=== PATIENT | male | born 1970 | race Caucasian/White ===

== ENCOUNTER 2018-10-22 17:03 | Outpatient (CLI) | payer OTHER, SELFPAY ==
--- NOTE | 2018-10-22 10:13 | DI.RAD_ITS ---
SYMPTOM/DIAGNOSIS: INTERNAL DERANGEMENT, S/P FALL ON 10/17/18 RIGHT KNEE: Three views. No priors. No acute fracture or dislocation is seen. Note is made of a moderate suprapatellar joint effusion. IMPRESSION: Joint effusion. No acute fracture or dislocation.
== END 2018-10-22 17:23 ==
PROVIDERS: Visit Provider Nurse Practitioner Family
DX: M23.91 Unspecified internal derangement of right knee (principal); M25.461 Effusion, right knee
CPT/HCPCS: 73562

== ENCOUNTER 2018-10-27 01:57 | Outpatient (CLI) | payer OTHER, SELFPAY ==
--- NOTE | 2018-10-27 08:32 | DI.MRI_ITS ---
SYMPTOM/DIAGNOSIS: RT KNEE EFFUSION, S/P FALL, PAIN MRI RIGHT KNEE: The study was carried out according to the usual protocol. A moderate joint effusion is demonstrated. There is evidence of synovial hypertrophy. There are some globular foci of dark signal in the synovium raising the possibility of pigmented villonodular synovitis. The medial patellar retinaculum is largely thinned with partial tear particularly at its' insertion on the patella. Note is also made of moderate chondromalacia along the lateral patellar facet. There is some underlying subchondral marrow edema here which could be degenerative or post traumatic. There is considerable degenerative change involving he tibial tuberosity which corresponds to the radiographic findings. The extensor mechanism of the knee is intact. The medial meniscus is normal. The lateral meniscus is normal. The medial capsule and supporting structures are unremarkable. The lateral capsule and supporting structures are unremarkable. There is nothing to suggest a tear. The anterior cruciate ligament is unremarkable. There is no evidence of a tear. The posterior cruciate ligament is intact. The musculature as visualized appears intact. There is a very small Cárdenas's cyst. There is moderate subcutaneous edema anteriorly about the knee. SUMMARY: Moderate subcutaneous edema anteriorly about the knee as demonstrated. There is a moderate joint effusion and synovial hypertrophy is identified. There are regions of dark signal in the synovium raising the possibility of pigmented villonodular synovitis. Note is also made of a small Cárdenas's cyst and partial tearing of the medial retinaculum. Moderate chondromalacia is identified along the lateral patellar facet with subchondral marrow edema which could represent degenerative or post traumatic change.
--- NOTE | 2018-10-28 16:05 | DI.VRAD_ITS ---
EXAM: MR Right Lower Extremity Without Contrast, Knee EXAM DATE/TIME: 10/27/2018 8:28 AM CLINICAL HISTORY: 48 years old, male; Pain; Knee; Right; Patient HX: Right knee effusion, fell on 10/19/18 TECHNIQUE: MR of the Right Lower extremity without intravenous contrast. Exam focused on the knee. COMPARISON: CR XR knee RT 3V AP,lat,helio 10/22/2018 10:36 AM FINDINGS: BONES/JOINTS/CARTILAGE: Patellofemoral compartment: There is a moderate knee joint effusion with synovial hypertrophy. Some globular foci of dark signal are present on some of the synovium, raising the possibility of pigmented villonodular synovitis. The medial patellar retinaculum is largely thinned, with partial tearing, particularly at its insertion on the patella. There is moderate chondromalacia along the lateral patellar facet. Some underlying subchondral marrow edema here could be degenerative or posttraumatic. Femorotibial compartments: There is considerable productive change along the tibial tuberosity, corresponding to the radiographic findings. Extensor mechanism: Unremarkable. No evidence of tear. Medial meniscus: Unremarkable. No evidence of tear. Lateral meniscus: Unremarkable. No evidence of tear. Medial capsule/supporting structures: Unremarkable. No evidence of tear. Lateral capsule/supporting structures: Unremarkable. No evidence of tear. Anterior cruciate ligament: Unremarkable. No evidence of tear. Posterior cruciate ligament: Unremarkable. No evidence of tear. Musculature: Unremarkable. Soft tissues: A small Cárdenas's cyst is present. There is moderate subcutaneous edema anteriorly about much of the knee. IMPRESSION: 1. Moderate subcutaneous edema anteriorly about much of the knee. 2. Moderate knee joint effusion with synovial hypertrophy. Some globular dark signal along the synovium raises the possibility of pigmented villonodular synovitis. 3. Small Cárdenas's cyst. 4. Partial tearing of the medial retinaculum. 5. 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 Dictated and Authenticated by: Chente Ham MD. Ordering:GEORGIE Hodge MD
== END 2018-10-27 02:17 ==
PROVIDERS: PCP Family Medicine Adult Medicine; Visit Provider Nurse Practitioner Family
DX: M25.461 Effusion, right knee (principal); R60.0 Localized edema; M71.21 Synovial cyst of popliteal space [Baker], right knee; M22.41 Chondromalacia patellae, right knee
CPT/HCPCS: 73721

== ENCOUNTER 2021-11-28 11:25 | Emergency (ER) | payer OTHER, SELFPAY ==
[2021-11-28] VITALS (15 sets, daily range): BP systolic 129–150; BP diastolic 82–90; PULSE 66–97; RESP 12–20; TEMP 37.1–37.3; O2SAT 94–98
--- NOTE | 2021-11-28 11:15 | RT.EKG_ITS ---
APPROVED REPORT Exam: Resting ECG Reason for Exam: chest pain/covid Patient Location: E HR:81 bpm ECG Measurements Heart Rate 81 AXIS DE 187 P 28 QRSd 109 QRS -32 QT 352 T 3 QTc 409 Conclusion Sinus rhythm...normal P axis, V-rate 60- 99 Left axis deviation...QRS axis (-30,-90)
[2021-11-28 11:57] LABS: Abs Immature Grans 0.03 10^3/uL (0.0-0.06); HCT 45.6 % (40.0-50.0); HGB 15.1 g/dL (13.5-17.5); MCH 30.2 pg (27.0-33.0); MCHC 33.1 % (32.0-36.0); MCV 91.2 fL (80-95); MPV 9.4 fL (8.0-11.0); Nucleated RBC 0 %; Platelet Count 267 10^3/uL (130-400); RDW 12.8 % (11.8-14.1); RDW-SD 42.5 fL; WBC 11.29 10^3/uL (4.4-10.8)
[2021-11-28 12:20] LABS: ALT 45 U/L (16-63); AST 25 U/L (15-37); Albumin 4.1 g/dL (3.4-5.0); Alkaline Phosphatase 69 U/L (46-116); Anion Gap 10.9 mmol/L (3-11); BUN 18 mg/dL (7-18); Bilirubin, Total 0.5 mg/dL (0.2-1.0); CO2 24.1 mmol/L (21.0-32.0); Calcium 8.8 mg/dL (8.5-10.1); Chloride 100 mmol/L (98-107); Glucose 88 mg/dL (74-106); Sodium 135 mmol/L (136-145); Total Protein 8.1 g/dL (6.4-8.2); Troponin I < 50 ng/L (<or=60)
[2021-11-28 12:29] LABS: Absolute Lymphocyte Count 1.92 10^3/uL (1.2-3.4); Absolute Monocyte Count 1.13 10^3/uL (0.1-0.8); Absolute Neutrophil Count 8.24 10^3/uL (1.2-6.7); Atypical Lymphocytes % 8; Bands % 0; Diff Comment Manual Differential; RBC Morphology Normal
[2021-11-28 12:38] LABS: D-Dimer 611 ng/mlFEU (<500)
--- NOTE | 2021-11-28 12:53 | DI.CT_ITS ---
Exam(s) CT CHEST PE CTA EXAM: CT CHEST PE CTA CLINICAL HISTORY: intermit lt chest pain, positive covid, +ddimer. TECHNIQUE: Imaging Protocol: Axial CT angiography was performed with multi-slice acquisition and mu lti-planar and/or 3D reconstructions. CONTRAST MATERIAL: Intravenous: Omnipaque 350 Contrast volume:structured data in ml COMPARISON: No exams were available for comparison FINDINGS: CT angiography of the chest was performed with intravenous infusion of 82 cc of Omnipaque 350. The lungs are clear. No pleural effusion. Tracheobronchial tree appears intact. No evidence of pulmonary embolic disease. Thoracic aorta is of normal diameter, no thoracic aortic an eurysm or dissection, major branch vessels appear intact. No mediastinal or hilar adenopathy. Images obtained through the upper abdomen show unremarkable appearance of the visualized portions of the liver, spleen, pancreas, adrenals, and kidneys. IMPRESSION: Negative CT angiogram of the chest. No evidence of pulmonary embolic disease. RADIATION DOSE DELIVERED: 501.64mGy.cm Total DLP 501.64mGy.cm Total DLP 13.82mGy CTDIvol DATA REPOSITORY: All CT scans at this facility are submitted to the National Radiology Data Registry (NRDR) Dose Index Registry (DIR) with the [employer] ([employer]). RADIATION OPTIMIZATION: All CT scans at this facility use at least one of these dose optimization te chniques: automated exposure control; mA and/or kV adjustment per patient size (includes targeted exa ms where dose is matched to clinical indication); or iterative reconstruction.
[2021-11-28] MEDS: Omnipaque 350 MG/ML 100 ML BTL 82 ML IJ (13:02)
--- NOTE | 2021-11-28 14:00 | RT.EKG_ITS ---
APPROVED REPORT Exam: Resting ECG Reason for Exam: chest pain Patient Location: E HR:78 bpm ECG Measurements Heart Rate 78 AXIS VT 182 P 22 QRSd 108 QRS -31 QT 370 T 3 QTc 423 Conclusion Sinus rhythm...normal P axis, V-rate 60- 99 Left axis deviation...QRS axis (-30,-90)
[2021-11-28 14:51] LABS: Troponin I < 50 ng/L (<or=60)
--- NOTE | 2021-11-28 15:14 | W.ED.GENAD ---
Discharge Plan Disposition Patient Disposition: HOME Condition: Stable Discharge Details Clinical Impression: Chest pain Primary Care Provider: Toni Chase ED Provider: Duy Velasquez Home Meds and New Rx's Prescriptions: Continued ibuprofen 800 mg tablet 800 mg PO TID RF: 0 acetaminophen 500 mg capsule 1,000 mg PO TID RF: 0 Discharge Instructions Instructions: Chest Pain (ED), COVID-19 (Coronavirus Disease 2019) (ED) Additional Instructions: You have tested positive for COVID at home. Please maintain isolation at home for 5 days after day of test. If your symptoms are resolved you may go back into public wearing a mask. Please drink plenty of fluids and allow for plenty of rest. Please contact your primary care physician to arrange follow-up. Please be sure to call your physician today to arrange timely follow-up for your chest discomfort. Outpatient stress testing is recommended. No exertional activities are to be performed until cleared by your doctor. Return to the ER immediately for any worsening or new concerning symptoms. Referrals: Toni Chase [Primary Care Provider] - Discharge Data Discharge Date/Time-TO BE ENTERED AT DEPARTURE: 11/28/21 15:58 Medical Decision Making 51-year-old male here with mild respiratory symptoms, tested positive for COVID at home today, also with intermittent brief chest discomfort today. Tender pulmonary embolism. D-dimer was slightly elevated. CT of the chest was obtained and interpreted by radiology- IMPRESSION: Negative CT angiogram of the chest. No evidence of pulmonary embolic disease. Considered ACS. EKG was reviewed and interpreted by me: Please see report, nondiagnostic, no STEMI. Initial troponin negative. Patient was observed in the emergency department for 3 hours and had a repeat delta troponin which was also negative and unchanged from prior. Repeat EKG was reviewed and interpreted by me: Please see report, nondiagnostic, no STEMI, no dynamic changes. Patient reassessed and remained stable. Suspect musculoskeletal etiology. I will have the patient follow-up with his primary care physician. Usual customary discharge instructions were reviewed with the patient. Lab Data Lab results reviewed: Yes I reviewed the patient's lab results. HPI General Mode of arrival: ambulatory. Date/Time Provider Initiated Documentation: 11/28/21 11:34. Limitations to Documentation: no limitations. Information obtained by: patient. HPI Narrative: 51yo m presents with chief complaint of chest discomfort. Patient notes he had fever that started yesterday, nonproductive cough, stuffy head, headache yesterday. He took COVID test this morning and was positive. He notes he has been having intermittent brief episodes of left-sided chest discomfort described as burning. Discomfort occurs every hour or so and last seconds and resolves. No modifiers. Patient denies associated leg swelling or calf pain. No associated diaphoresis or nausea. Related Data Home Medications Medication Instructions Recorded Confirmed acetaminophen 500 mg capsule 1,000 mg PO TID cap 10/29/18 11/28/21 ibuprofen 800 mg tablet 800 mg PO TID 10/29/18 11/28/21 Allergies Allergy/AdvReac Type Severity Reaction Status Date / Time No Known Drug Allergies Allergy Verified 11/28/21 11:31 General Stated Complaint: Chest Pain MADDY: 2 Review of Systems All systems reviewed & are unremarkable except as noted in HPI and below Constitutional Constitutional: Reports as per HPI and Reports fever(s) Cardiovascular Cardiovascular: Reports as per HPI Respiratory Respiratory: Reports as per HPI PFSH All Active Problems Chest pain (Acute) Medical History Carpal tunnel syndrome, bilateral Degenerative disc disease, lumbar Fracture tibia/fibula sports injury, high school Social History Smoking/Tobacco Use Status: Never Smoking risk assessment performed?: Yes Alcohol Intake: current Alcohol Intake frequency: 0-2 drinks per day Alcohol type: hard liquor Drug use: Never Substance use type: does not use Household members: spouse 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, 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[employer] What type of physical activity do you participate in: regular exercise Frequency: daily Do you feel safe at home: Yes Do you feel safe in your relationship?: Yes Exam Const General: cooperative and no acute distress HENMT Mouth: moist mucous membranes Eyes Conjunctivae: normal conjunctivae Sclera: normal sclerae Resp Auscultation: clear to auscultation bilaterally, no rales, no rhonchi and no wheezes Cardio Rate: regular rate and not tachycardic Rhythm: regular rhythm Heart Sounds: no click, no gallops, no murmurs and no rubs GI Palpation: soft, not firm, no guarding, no masses, not rigid and nontender Skin General skin exam: no rashes or lesions noted Neuro General: patient alert, patient awake, patient oriented x3 and tone normal Extrem General: no calf tenderness and no edema Psych Appearance: grossly normal Mental Status: mental status grossly normal Speech and Movement: speech and movement normal Course Vital Signs Vital signs: Vital Signs Temperature 37.3 C 11/28/21 11:27 Pulse 85 11/28/21 11:27 Respiratory Rate 17 11/28/21 11:27 Blood Pressure 150/89 H 11/28/21 11:27 Pulse Oximetry 97 11/28/21 11:27 Temperature 37.1 C 11/28/21 12:22 Temperature Source Temporal Artery Scan 11/28/21 12:22 Pulse 84 11/28/21 14:45 Pulse 92 H 11/28/21 14:45 Respiratory Rate 18 11/28/21 14:45 Respiratory Effort Non-Labored 11/28/21 11:33 Respiratory Depth Normal 11/28/21 11:33 Respiratory Pattern Normal 11/28/21 11:33 Blood Pressure 133/89 11/28/21 14:45 Blood Pressure Mean 100 11/28/21 14:45 Blood Pressure Position Sitting 11/28/21 11:27 Pulse Oximetry 95 11/28/21 14:45 Pain Level 1 11/28/21 11:33 Lab/Test Results Lab/Test Results: Laboratory Tests Range/Units 11/28/21 11/28/21 11/28/21 11:45 11:45 11:45 WBC (4.4-10.8) 10^3/uL 11.29 H RBC (4.36-5.78) 10^6/uL 5.00 Hgb (13.5-17.5) g/dL 15.1 Hct (40.0-50.0) % 45.6 MCV (80-95) fL 91.2 MCH (27.0-33.0) pg 30.2 MCHC (32.0-36.0) % 33.1 RDW (11.8-14.1) % 12.8 Plt Count (130-400) 10^3/uL 267 MPV (8.0-11.0) fL 9.4 Immature Gran % 0.0 Neutrophils % 73.0 Band Neutrophils % 0 Lymphocytes % 9.0 Atypical Lymphs % 8 Monocytes % 10.0 Eosinophils % 0.0 Basophils % 0.0 Nucleated RBC % % 0 Absolute Neutrophils (1.2-6.7) 10^3/uL 8.24 H Absolute Lymphocytes (1.2-3.4) 10^3/uL 1.92 Absolute Monocytes (0.1-0.8) 10^3/uL 1.13 H Absolute Eosinophils (0.0-0.7) 10^3/uL 0.00 Absolute Basophils (0.0-0.2) 10^3/uL 0.00 RBC Morphology Normal D-Dimer (<500) ng/mlFEU 611 H Sodium (136-145) mmol/L 135 L Potassium (3.5-5.1) mmol/L 4.0 Chloride (98-107) mmol/L 100 Carbon Dioxide (21.0-32.0) mmol/L 24.1 Anion Gap (3-11) mmol/L 10.9 BUN (7-18) mg/dL 18 Creatinine (0.70-1.30) mg/dL 1.0 Estimated GFR/1.73 m2 (mL/min/1.73m2) >= 60.00 Glucose (74-106) mg/dL 88 Calcium (8.5-10.1) mg/dL 8.8 Total Bilirubin (0.2-1.0) mg/dL 0.5 AST (15-37) U/L 25 ALT (16-63) U/L 45 Alkaline Phosphatase (46-116) U/L 69 Troponin I (<or=60) ng/L < 50 Total Protein (6.4-8.2) g/dL 8.1 Albumin (3.4-5.0) g/dL 4.1 Range/Units 11/28/21 14:16 WBC (4.4-10.8) 10^3/uL RBC (4.36-5.78) 10^6/uL Hgb (13.5-17.5) g/dL Hct (40.0-50.0) % MCV (80-95) fL MCH (27.0-33.0) pg MCHC (32.0-36.0) % RDW (11.8-14.1) % Plt Count (130-400) 10^3/uL MPV (8.0-11.0) fL Immature Gran % Neutrophils % Band Neutrophils % Lymphocytes % Atypical Lymphs % Monocytes % Eosinophils % Basophils % Nucleated RBC % % Absolute Neutrophils (1.2-6.7) 10^3/uL Absolute Lymphocytes (1.2-3.4) 10^3/uL Absolute Monocytes (0.1-0.8) 10^3/uL Absolute Eosinophils (0.0-0.7) 10^3/uL Absolute Basophils (0.0-0.2) 10^3/uL RBC Morphology D-Dimer (<500) ng/mlFEU Sodium (136-145) mmol/L Potassium (3.5-5.1) mmol/L Chloride (98-107) mmol/L Carbon Dioxide (21.0-32.0) mmol/L Anion Gap (3-11) mmol/L BUN (7-18) mg/dL Creatinine (0.70-1.30) mg/dL Estimated GFR/1.73 m2 (mL/min/1.73m2) Glucose (74-106) mg/dL Calcium (8.5-10.1) mg/dL Total Bilirubin (0.2-1.0) mg/dL AST (15-37) U/L ALT (16-63) U/L Alkaline Phosphatase (46-116) U/L Troponin I (<or=60) ng/L < 50 Total Protein (6.4-8.2) g/dL Albumin (3.4-5.0) g/dL PAWSS Have you Been Recently Intoxicated or Drunk Within the Last 30 days?: No Have you Ever Experienced Previous Episodes of Alcohol Withdrawal?: No Have you ever Experienced Withdrawal Seizures?: No Have you ever Experienced Delirium Tremens(DT)s?: No Have you ever undergone Alcohol Rehabilitation Treatment (i.e, inpt ot outpatient treatment programs)?: No Have you ever Experienced Blackouts?: No Have you ever Combined Alcohol with other Downers within the last 90 days?: No Have you ever Combined Alcohol with any other Substance of Abuse during the last 90 days?: No Positive Blood Alcohol level on Presentation? [PCS.BAL]: No Evidence of Increased Autonomic Activity (i.e. HR>120, tremor, sweating, agitation, nausea)?: No Result: 0
[2021-11-29 12:49] LABS: COVID-19 RT-PCR UVMMC Result Positive (Negative)
--- NOTE | 2021-11-29 13:08 | W.ED.FU ---
I contacted the patient at approximately 1300 on 11-29-2021 to make him aware that his COVID test here in the ER was positive. This came as no surprise because he had tested positive at home yesterday. We discussed the standard CDC recommendations for quarantining. We discussed the importance of treating his symptoms with [id number] medications, resting, adequate hydration. He was encouraged to contact his primary care provider to discuss his ER visit, ongoing symptoms and need for outpatient reevaluation. Standard return precautions were provided
== END 2021-11-28 15:58 | disposition home or self-care (01) ==
PROVIDERS: Emergency Provider Student in an Organized Health Care Education/Training Program; PCP Family Medicine Adult Medicine
DX: U07.1 COVID-19 (principal); R07.9 Chest pain, unspecified; R79.1 Abnormal coagulation profile
CPT/HCPCS: 36415; 71275; 80053; 93005; 99284; 99285; U0003; 84484; 85025; 85379; 93010; J3490

== ENCOUNTER 2022-09-17 19:37 | Emergency (ER) | payer OTHER, SELFPAY ==
[2022-09-17 19:56] VITALS: BP 140/94; PULSE 99; RESP 20; O2SAT 94
--- NOTE | 2022-09-17 20:00 | DI.RAD_ITS ---
Exam(s) XR HAND LT COMPLETE EXAM: XR HAND LT COMPLETE CLINICAL HISTORY: pain s/p hitting it with handle of hammer. TECHNIQUE: 2D digital imaging was performed of the left hand. Three views were obtained. AP, later al and oblique views were obtained. COMPARISON: No exams were available for comparison FINDINGS: BONES: There is a fracture of the terminal tuft of the left 5th finger. No bony destructive lesion i s seen. JOINTS: No dislocation present. SOFT TISSUE: No radiopaque foreign bodies are seen in the soft tissues. IMPRESSION: Mildly comminuted fracture involving the terminal tuft of the 5th finger. DATA REPOSITORY: RADIATION DOSE DELIVERED:
--- NOTE | 2022-09-17 20:15 | ED.GENADUL_ITS ---
Discharge Plan Disposition Patient Disposition: HOME Condition: Stable Discharge Details Clinical Impression: Injury of hand, left Primary Care Provider: Toni Chase ED Provider: Chente Montero Home Meds and New Rx's Prescriptions: New amoxicillin-pot clavulanate 875-125 mg tablet 1 tab PO BID Qty: 10 0RF Continued ibuprofen 800 mg tablet 800 mg PO TID acetaminophen 500 mg capsule 1,000 mg PO TID Discharge Instructions Instructions: Skin Adhesive Care (ED) Additional Instructions: try to keep the fingers covered and with a pressure dressing for the next 5-7 days if you have spreading redness, severe worsening pain or yellow/white discharge return to the emergency department Medical Decision Making 51 yo male comes in with left hand injury. He was at work using a sledehammer when the handle hit his left hand injuring the pinky and ring finger, denies falls or other injuries. He wrapped his fingers and thouht it was sufficient but removed the bandages tonight and noted bleeding in the pinky he couldn't control so he came here. He arrives stable in no distress. His left pinky nail is completely gone and there is a 1cm superficial abrasion that is bleeding in the nail bed. The nailfold is also swollen and tender, there is also distal bony tenderness, intact sensation and can fully range the finger. He has a superficial left distal ring finger nail laceration with the proximal nail still in place, no bleeding and normal sensation pulses and full rom. Does have distal bony tenderness as well. No visible vone exposure. Will obtain xrays to evaluate for underlying fractures, no findings to suggest neurovascular injury able to stop the bleeding with skin adhesive, unfortunately his nail fold is so swollen that I am unable to insert temporary holding device such as sterile foil, he was advised of this and will f/u with hand surgery if he chooses. He does have a distal left 5th fracture of indeterminate age. Discussed with him and he wants to defer ortho referral at this time, was advised to call them if he does choose to have f/u with them. Return precautions given, will provide short course of oral antibiotics as well. He states last tetanus shot was 3 years ago Differential Diagnosis Differential Diagnosis: nail bed injury, avulsion, laceration Imaging Data Radiologic Study: Attestation: I personally reviewed and interpreted this imaging study as follows: Imaging: X-Ray Radiologist's impression: fracture indeterminate age distal left phalanx HPI General Mode of arrival: ambulatory . Date/Time Provider Initiated Documentation: 09/17/22 20:01 . Limitations to Documentation: no limitations . Information obtained by: patient . History of Present Illness 51 year old M presents to the emergency department with the chief complaint of left hand injury, described as moderate, Quality is described as aching, and is localized to the left and upper extremity. Patient reports no radiation. Patient started experiencing this hour(s) (12) and it has been constant. No relieving factors improve symptom(s), No exacerbating factors reported . Patient notes no other symptoms.. Patient did receive the following treatments prior to arrival, none Related Data Home Medications Medication Instructions Recorded Confirmed acetaminophen 500 mg capsule 1,000 mg PO TID 10/29/18 11/28/21 ibuprofen 800 mg tablet 800 mg PO TID 10/29/18 11/28/21 amoxicillin 875 mg-potassium 1 tab PO BID #10 tabs 09/17/22 clavulanate 125 mg tablet Previous Rx's Medication Instructions Recorded amoxicillin 875 mg-potassium 1 tab PO BID #10 tabs 09/17/22 clavulanate 125 mg tablet Allergies Allergy/AdvReac Type Severity Reaction Status Date / Time No Known Drug Allergies Allergy Verified 11/28/21 11:31 General Stated Complaint: Laceration MADDY: 3 Review of Systems All systems reviewed & are unremarkable except as noted in HPI and below Constitutional Constitutional: Denies chills, Denies fever(s) and Denies weakness Cardiovascular Cardiovascular: Denies chest pain and Denies dyspnea Respiratory Respiratory: Denies cough and Denies dyspnea Gastrointestinal Gastrointestinal: Denies abdominal pain, Denies nausea and Denies vomiting Musculoskeletal Musculoskeletal: Denies joint swelling Neurologic Neurologic: Denies weakness Psychiatric Psychiatric: Denies depression Endocrine Endocrine: Denies cold intolerance and Denies heat intolerance Allergic/Immunologic Allergic/Immunologic: Denies urticaria PFSH All Active Problems (Updated 09/17/22 @ 21:12 by Chente Montero MD) Injury of hand, left (Acute) Medical History Carpal tunnel syndrome, bilateral Degenerative disc disease, lumbar Fracture tibia/fibula sports injury, high school Social History Smoking/Tobacco Use Status: Never Smoking risk assessment performed?: Yes Alcohol Intake: current Alcohol Intake frequency: 0-2 drinks per day Alcohol type: hard liquor Drug use: Never Substance use type: does not use Household members: spouse 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, [employer] What type of physical activity do you participate in: regular exercise Frequency: daily Do you feel safe at home: Yes Do you feel safe in your relationship?: Yes Exam Const General: no acute distress Orientation: alert HENMT Head: normal to inspection Ears: external ears normal General nose exam: external nose normal Mouth: moist mucous membranes Eyes General: appearance normal, both eyes and all related structures Neck Neck: normal visual inspection Resp Effort & Inspection: normal respiratory effort and able to speak in complete sentences Cardio Rate: regular rate Skin General skin exam: no rashes or lesions noted Neuro General: patient alert and patient oriented x3 Extrem General: full ROM and capillary refill normal Psych Mental Status: mental status grossly normal Course Vital Signs Vital signs: Vital Signs Pulse 99 H 09/17/22 19:56 Respiratory Rate 20 09/17/22 19:56 Blood Pressure 140/94 H 09/17/22 19:56 Pulse Oximetry 94 09/17/22 19:56 Pulse 99 H 09/17/22 19:56 Respiratory Rate 20 09/17/22 19:56 Blood Pressure 140/94 H 09/17/22 19:56 Blood Pressure Position Sitting 09/17/22 19:56 Pulse Oximetry 94 09/17/22 19:56 Oxygen Delivery Method Room Air 09/17/22 19:56 Oxygen Flow Rate 0 09/17/22 19:56 Pain Level 5 09/17/22 19:56
[2022-09-17] MEDS: Acetaminophen 500 MG TAB 1000 MG PO (20:46)
--- NOTE | 2022-09-17 21:06 | DI.VRAD_ITS ---
PROCEDURE INFORMATION: Exam: XR Left Hand Exam date and time: 09/17/2022 8:43 PM Age: 51 years old Clinical indication: Injury or trauma; Other: Hit with hammer; Blunt trauma (contusions or hematomas); Left; Injury date: 09/17/22; Injury details: Pain S/P hitting it with handle of hammer TECHNIQUE: Imaging protocol: Radiologic exam of the Left hand. Views: 3 or more views. COMPARISON: No relevant prior studies available. FINDINGS: Bones/joints: A mildly comminuted fracture of the distal 5th phalanx of indeterminate age No dislocation Soft tissues: No significant swelling IMPRESSION: Fracture of the distal 5th phalanx of indeterminate age Dictated and Authenticated by: Radhames Acuna MD. Ordering:ISMA Eldridge MD
== END 2022-09-17 21:45 | disposition home or self-care (01) ==
PROVIDERS: Emergency Provider Emergency Medicine; PCP Family Medicine Adult Medicine
DX: S67.197A Crushing injury of left little finger, initial encounter (principal); S67.195A Crushing injury of left ring finger, initial encounter; W27.8XXA Contact with other nonpowered hand tool, initial encounter
CPT/HCPCS: 99283; 73130

== ENCOUNTER 2023-04-07 17:07 | Emergency (ER) | payer OTHER, SELFPAY ==
[2023-04-07 17:11] VITALS: PULSE 102; RESP 18; TEMP 37; O2SAT 95
[2023-04-07 17:14] VITALS: BP 124/84
--- NOTE | 2023-04-07 17:24 | ED.GENADUL_ITS ---
Discharge Plan Disposition Patient Disposition: Home Discharge Details Clinical Impression: Left-sided Gaspar's palsy Primary Care Provider: Toni Chase ED Provider: Jair Carey Home Meds and New Rx's Prescriptions: New prednisone 20 mg tablet 60 mg PO DAILY 7 Days Qty: 21 0RF Artificial Tears (cmc) 1 % drops 1 drp ophthalmic (eye) 4-6XD PRNQty: 15 0RF Refresh Lacri-Lube 56.8-42.5 % ointment 1 applic ophthalmic (eye) QHS Qty: 7 0RF acyclovir 400 mg tablet 400 mg PO QID 7 Days Qty: 28 0RF doxycycline hyclate 100 mg capsule 100 mg PO BID 14 Days Qty: 28 0RF Discontinued ibuprofen 800 mg tablet 800 mg PO TID Patient Comments: not taking acetaminophen 500 mg capsule 1,000 mg PO TID Patient Comments: not taking amoxicillin-pot clavulanate 875-125 mg tablet 1 tab PO BID Qty: 10 0RF Patient Comments: not taking Discharge Instructions Additional Instructions: You were seen in the emergency department for your facial droop and diagnosed with Gaspar's palsy. The section gang worker at [facility] has been asked to see you in the next 1 to 2 days. At home please ensure that your left cornea is protected. You are receiving a prescription for artificial tears that you should take every hour while awake. Please also use this ophthalmologic ointment at night. Please also tape your eye shut at night. You are also receiving steroids and they should take for the next week, antiviral medications and antibiotics to cover in the event that a Lyme infection caused your facial paralysis. As we discussed, if you develop any weakness difficulty speaking or develop any fevers please return to the emergency department. Discharge Data Discharge Date/Time-TO BE ENTERED AT DEPARTURE: 04/07/23 18:39 Medical Decision Making This is an overall very well-appearing normothermic and initially tachycardic 51-year-old male with left-sided facial palsy with no forehead sparing most consistent with Gaspar's palsy. Patient is moving his extremities well with no aphasia nor dysarthria so my suspicion is exceedingly low for CVA so I do not feel the patient is a candidate for tPA. Given my low suspicion for CVA I did not complete a CT scan nor did I feel the patient required hospitalization nor an MRI. No nuchal rigidity nor fevers to suggest meningitis so I did not feel that the patient required a lumbar puncture. Given no shortness of breath nor any chest pain I was not suspicious for Lyme carditis so I did not order an ECG. No tonic-clonic activity to suggest seizure so I did not feel that the patient required an EEG. I have asked health community relations police lieutenant Mel to have the patient seen in the next 1 to 2 days by [facility] for an ophthalmic exam to monitor his left cornea. I also prescribed him artificial tears every hour while awake and ophthalmological ointment at night with Lacri-Lube. I advised him of taping his eye shut at night. We will also initiate treatment with prednisone 60 mg for 1 week given symptom onset within 72 hours. We will also treat with antivirals using acyclovir given reported reassuring labs recently at PCP appointment. Given the patient has been camping today and lives in an area endemic for Lyme will also add on 2 weeks of empiric doxycycline. I did spiritual counselor the patient on avoiding sun exposure and covering up while taking doxycycline. I also advised the patient and his that if he developed any weakness shortness of breath difficulty speaking or if he has any other concerns that he should return to the emergency department. We will proceed with empiric trial of expectant outpatient management and give patient return indications. I have also asked patient to return to the emergency department if he develops any focal weakness any trouble speaking or takes any falls. 6:15 PM Tachycardia resolved without intervention in the ED. HPI General Date/Time Provider Initiated Documentation: 04/07/23 17:23 . HPI Narrative: This is a previously healthy 52-year-old male arriving via private vehicle in the setting of tongue numbness and left-sided facial weakness. Patient reports that he woke up with his tongue numbness at 8 AM. At approximately 10 AM this morning he noticed that his face was drooping on the left side. He attempted treatment at home with diphenhydramine and subsequently took a nap but his symptoms did not improve. He denies routine tobacco. He has no history of hype rtension hyperlipidemia nor diabetes. He does not recall being bit by a tick. He was camping last night. 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 He has had no fevers chest pain or shortness of breath. No dysuria nor frequency. No abdominal pain. He denies any focal areas of weakness. He has not taken any falls. He is not having any trouble speaking nor any trouble naming. Related Data Home Medications Medication Instructions Recorded Confirmed acyclovir 400 mg tablet 400 mg PO QID 1 week #28 tabs 04/07/23 carboxymethylcellulose sodium 1 % 1 drp ophthalmic (eye) 4-6XD PRN 04/07/23 eye drops (Artificial Tears #15 mL (carboxymethylcellulose)) doxycycline hyclate 100 mg capsule 100 mg PO BID 2 weeks #28 caps 04/07/23 prednisone 20 mg tablet 60 mg PO DAILY 1 week #21 tabs 04/07/23 white petrolatum-mineral oil 56.8 1 applic ophthalmic (eye) QHS #7 04/07/23 %-42.5 % eye ointment (Refresh grams Lacri-Lube) Previous Rx's Medication Instructions Recorded acyclovir 400 mg tablet 400 mg PO QID 1 week #28 tabs 04/07/23 carboxymethylcellulose sodium 1 % 1 drp ophthalmic (eye) 4-6XD PRN 04/07/23 eye drops (Artificial Tears #15 mL (carboxymethylcellulose)) doxycycline hyclate 100 mg capsule 100 mg PO BID 2 weeks #28 caps 04/07/23 prednisone 20 mg tablet 60 mg PO DAILY 1 week #21 tabs 04/07/23 white petrolatum-mineral oil 56.8 1 applic ophthalmic (eye) QHS #7 04/07/23 %-42.5 % eye ointment (Refresh grams Lacri-Lube) Allergies Allergy/AdvReac Type Severity Reaction Status Date / Time No Known Drug Allergies Allergy Verified 04/07/23 17:14 General Stated Complaint: FacialProb MADDY: 3 PFSH All Active Problems (Updated 04/07/23 @ 17:51 by Jair Carey MD) Left-sided Gaspar's palsy (Acute) Medical History Carpal tunnel syndrome, bilateral Degenerative disc disease, lumbar Fracture tibia/fibula sports injury, high school Social History Smoking/Tobacco Use Status: Never Smoking risk assessment performed?: Yes Alcohol Intake: current Alcohol Intake frequency: 0-2 drinks per day Alcohol type: hard liquor Drug use: Never Substance use type: does not use Household members: spouse 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 Head: Normocephalic, atraumatic. Eye: Pupils equal, round reactive to light. Extraocular eye movements intact. No conjunctival injection. No scleral icterus. Ear, nose, mouth, throat: Normal voice, handling secretions normally. Neck: Trachea midline. Cardiovascular: Well-perfused distal extremities. Respiratory: Nonlabored respiration. Gastrointestinal: Nondistended abdomen. Musculoskeletal: No edema. Moving all 4 extremities spontaneously. Skin: Normal for age and race, grossly normal temperature and turgor. No acute rash. Neurologic: Alert and appropriate. Left-sided facial palsy that does not spare the forehead. Otherwise cranial nerves II to XII intact grossly. 5 and 5 bilateral upper and lower extremity strength. Psychiatric: Mood and manner are appropriate. Grooming and personal hygiene are appropriate. Course Vital Signs Vital signs: Vital Signs Temperature 37.0 C 04/07/23 17:11 Pulse 102 H 04/07/23 17:11 Respiratory Rate 18 04/07/23 17:11 Pulse Oximetry 95 04/07/23 17:11 Temperature 37.0 C 04/07/23 17:11 Pulse 102 H 04/07/23 17:11 Respiratory Rate 18 04/07/23 17:11 Respiratory Effort Normal, Non-Labored 04/07/23 17:13 Blood Pressure 124/84 04/07/23 17:14 Pulse Oximetry 95 04/07/23 17:11 Oxygen Delivery Method Room Air 04/07/23 17:11 Oxygen Flow Rate 0 04/07/23 17:11
[2023-04-07] MEDS: Doxycycline Hyclate 100 MG CAP PO (17:54)
[2023-04-07] MEDS: Acyclovir 400 MG TAB PO (17:54)
[2023-04-07] MEDS: predniSONE 20 MG TAB 60 MG PO (17:54)
[2023-04-07 17:58] VITALS: PULSE 88
[2023-04-07 18:27] VITALS: BP 127/84; PULSE 86; RESP 16; O2SAT 96
--- NOTE | 2023-04-07 18:36 | NUR.NOTE ---
Nursing Note: Referral faxed to [facility] for bells palsy to be seen this Fri or of this week
== END 2023-04-07 18:39 | disposition home or self-care (01) ==
PROVIDERS: Emergency Provider Emergency Medicine; PCP Family Medicine Adult Medicine
DX: G51.0 Bell's palsy (principal)
CPT/HCPCS: 99283; 99284; J7512

== ENCOUNTER 2024-02-01 18:52 | Emergency (ER) | payer OTHER, SELFPAY ==
[2024-02-01 18:54] VITALS: BP 155/85; PULSE 76; RESP 18; TEMP 36.6; O2SAT 98
--- NOTE | 2024-02-01 19:00 | DI.RAD_ITS ---
Exam(s) XR KNEE RT 3V AP,LAT,MICHELLE EXAM: XR KNEE RT 3V AP,LAT,MICHELLE CLINICAL HISTORY: Right Knee pain. TECHNIQUE: 2D digital imaging was performed. Three views. COMPARISON: CR XR knee RT 3V AP,lat,michelle from 10/22/2018 FINDINGS: BONES: No acute fracture is present. No bony destructive lesion is seen. Old defect at tibial tuber alina. Enthesophyte at upper pole of the patella. JOINTS: Joint spaces are maintained. The knee is normally aligned. A large joint effusion is seen. SOFT TISSUE: Marked suprapatellar soft tissue swelling. Quadriceps tendon injury be considered. IMPRESSION: Anterior soft tissue swelling and large joint effusion. Consider quadriceps tendon tear. DATA REPOSITORY: RADIATION DOSE DELIVERED:
--- NOTE | 2024-02-01 19:05 | W.ED.GENAD ---
Discharge Plan Disposition Patient Disposition: Home Discharge Details Clinical Impression: Effusion of right knee Primary Care Provider: Toni Chase ED Provider: Jair Carey Home Meds and New Rx's Prescriptions: No Action acetaminophen 500 mg capsule 1,000 mg PO Q6H PRN ibuprofen [IBU] 800 mg tablet 800 mg PO Q8H PRN Patient Comments: per patient oxycodone 5 mg tablet 5 mg PO DIRECTED Discharge Instructions Additional Instructions: You are seen in the emergency department for your knee pain. Your x-ray showed no sign of any fractures. There is concern for the possibility of a quadricep tendon rupture for which you should be seen later this week by the orthopedic team. Please use this knee immobilizer. Please wrap and elevate your right knee. You may bear weight on your right knee as you are able to tolerate. For your pain please take medications as follows: 1. Take acetaminophen (Tylenol), 1,000 mg (two 500 mg tabs) every 6 hours [2. Take ibuprofen (Advil), 400 mg every 6 hours.] You are also receiving several stronger pain medicines which you should take as directed. Please do not drive or drink alcohol if you are taking these medications. Referrals: Manohar Mcmahon MD [ [facility] STAFF PHYSICIAN] - Discharge Data Discharge Date/Time-TO BE ENTERED AT DEPARTURE: 02/01/24 21:34 HPI General Date/Time Provider Initiated Documentation: 02/01/24 19:04. HPI Narrative: MDM This is an uncomfortable appearing normothermic and not tachycardic 53-year-old male with right knee pain and traumatic effusion concerning for ligamentous versus osseous abnormality. Will obtain plain films to assess for any osseous abnormalities. No pain or proportion to suggest necrotizing soft tissue infection. I considered knee dislocation however the patient has a well-perfused right lower extremity and is not markedly obese so I do not feel that he requires a CTA runoff. Furthermore he does not have multi-directional instability nor a peroneal nerve palsy. Finally his knee did not hyperextend when his leg was lifted off the stretcher. On ultrasound there was concern for the possibility of quadriceps tendon injury. Soft compartments reassuring against compartment syndrome. No erythema to suggest cellulitis. No fluctuance to suggest abscess. No calf pain to suggest Achilles tendon injury so I did not perform a Eubanks test. No hip pain so low suspicion for hip fx. Will have patient ice and elevate. His inability to straight leg raise certainly could be from his traumatic knee effusion. He is not on blood thinners to suggest ongoing risk for worsening effusion. I have asked patient's nurse Corina to apply ice to his knee. 8:04 PM Unfortunately orthopedics is not on-call today locally. I have paged the transfer center at [facility] to speak with orthopedics. They are reportedly in a procedure and might not be able to call back for the next several hours. Will await radiology read anticipate placing the patient in knee immobilizer and making him a weightbearing as tolerated. 9:14 PM Unfortunately [facility] ortho has yet to call back. Patient requested to be discharged. Plain films negative for fracture. I have advised him that I want to wait to hear back from [facility]. He requested a call with the results from [facility] consultation. I have asked health ammunition components inspector Kathy to have the patient seen in the orthopedic clinic in next 3 days in the setting of his right knee effusion concerning for quadriceps tendon injury. I advised the patient of my concerns 11:15 PM [facility] orthopedics called back. I spoke with Dr. Eduardo Noel. His recommendation was that if the patient could not straight leg raise as a result of either an effusion or possibly a quadricep tendon injury that the patient should have his knee tapped. Given that the patient was no longer in the department this was not possible. Dr. Noel requested that I send a note to the scheduling department at [facility] for follow-up. Given the patient will receive local orthopedic follow-up and has seen orthopedics in the past at [facility] will defer [facility] follow-up at this point in time. I consider calling the patient back to the emergency department for a knee arthrocentesis however will treat conservatively with Martín wrap for compression elevation and ice along with NSAIDs and acetaminophen to determine whether or not the patient's effusion can resolve spontaneously. If the patient is able to resolve his traumatic effusion through conversative compression, elevation and ice I feel that this could avoid exposing him to the complications of an arthocentesis. Patient and I discussed returning to the ED for worsening pain swelling or any inability to move his distal right foot or any numbness or tingling in his right foot. Patient understood his return indications. I advised patient not to drive or drink ethanol while taking oxycodone in addition to scheduled acetaminophen and ibuprofen. I asked health ammunition components inspector Kathy to have the patient seen later this week by the orthopedic team at [facility]. I passed along the phone number for the ortho team to the patient. 02/01 I called the patient at home to inquire as to how he was feeling and to ensure he had been able to arrange follow up with orthopedics. Unfortunately he did not answer but I did leave a voicemail encouraging him to return to the ED if his symptoms were not improving. Weightbearing status: Weightbearing as tolerated Treatment: Martín wrap and right knee immobilizer Support: Patient had his own crutches Chronic conditions affecting the care of the patient: N/A History obtained from an outside historian: N/A External record review: N/A Medications: Acetaminophen oxycodone Social determinants of health affecting disposition: N/A Management discussed with: Orthopedics at [facility] Treatment/interventions considered: N/A Response to therapies provided: Slightly improved pain in the ED HPI This is a previously healthy 53-year-old male arrived to the emergency department via private vehicle in setting of right knee pain. Patient reportedly slipped on ice on his deck this morning. He complains of pain in his right knee. He has had difficulty bearing weight. He took 1600 mg of ibuprofen prior to arrival. He did not hit his head. He did not lose consciousness. He was having no preceding chest pain nausea vomiting or dizziness. He has a history of traumatic effusion to his right knee in the past which has required drainage. He iced his knee at home prior to arrival. He was initially able to bear weight on his right knee but can no longer as result of increasing pain. Exam General: Well-appearing in no acute distress speaking in complete sentences. Head: Normocephalic, atraumatic. Eye: Extraocular eye movements intact. No conjunctival injection. No scleral icterus. Ear, nose, mouth, throat: Grossly normal inspection. Normal voice, handling secretions normally. Neck: Trachea midline. Cardiovascular: Well-perfused distal extremities. Respiratory: Nonlabored respiration. Gastrointestinal: Nondistended abdomen. Musculoskeletal: Right lower extremity with moderate right knee effusion. Patient's knee is held in approximately 15 degrees of flexion. Patient cannot straight leg raise limited secondarily to pain and knee effusion. When lifting his right leg off the stretcher he cannot fully extend his right knee limited secondarily to pain. Right foot warm well-perfused with 2+ right PT and DP pulses. No tenderness in the calf. No significant laxity on valgus nor varus stress testing on right knee. Negative anterior posterior drawer tests. No lacerations. No significant ecchymosis. Compartment of right leg soft. Skin: Normal for age and race, grossly normal temperature and turgor. No acute rash. Neurologic: Alert and appropriate, no apparent acute deficits. Psychiatric: Mood and manner are appropriate. Grooming and personal hygiene are appropriate. Related Data Home Medications Medication Instructions Recorded Confirmed acetaminophen 500 mg capsule 1,000 mg PO Q6H PRN 02/02/24 02/02/24 ibuprofen 800 mg tablet (IBU) 800 mg PO Q8H PRN 02/02/24 02/02/24 oxycodone 5 mg tablet 5 mg PO DIRECTED 02/02/24 02/02/24 Allergies Allergy/AdvReac Type Severity Reaction Status Date / Time No Known Allergies Allergy Unverified 02/02/24 14:38 General Stated Complaint: Orthopedic MADDY: 4 Course Vital Signs Vital signs: Vital Signs Temperature 36.6 C 02/01/24 18:54 Pulse 76 02/01/24 18:54 Respiratory Rate 18 02/01/24 18:54 Blood Pressure 155/85 H 02/01/24 18:54 Pulse Oximetry 98 02/01/24 18:54 Temperature 36.6 C 02/01/24 18:54 Temperature Source Oral 02/01/24 18:54 Pulse 76 02/01/24 18:54 Respiratory Rate 18 02/01/24 18:54 Respiratory Effort Normal, Non-Labored 02/01/24 19:00 Blood Pressure 155/85 H 02/01/24 18:54 Blood Pressure Position Sitting 02/01/24 18:54 Pulse Oximetry 98 02/01/24 18:54 Oxygen Delivery Method Room Air 02/01/24 18:54 Oxygen Flow Rate 0 02/01/24 18:54 Pain Level 5 02/01/24 18:54 Medical Decision Making Quality:SDOH Health Related Social Needs: No Data to Display PFSH All Active Problems (Updated 02/02/24 @ 13:26 by Manohar Mcmahon MD) Rupture of right quadriceps muscle (Acute) Effusion of right knee (Acute) Medical History Carpal tunnel syndrome, bilateral Degenerative disc disease, lumbar Fracture tibia/fibula sports injury, high school Social History Smoking/Tobacco Use Status: Current-Occasional Tobacco Type: cigars Smoking risk assessment performed?: Yes Alcohol Intake: current Alcohol Intake frequency: a few times a week Alcohol type: hard liquor Drug use: Never Substance use type: does not use Household members: spouse Housing: house 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
[2024-02-01] MEDS: oxyCODONE 5 MG TAB PO (19:26)
[2024-02-01] MEDS: Acetaminophen 500 MG TAB 1000 MG PO (19:26)
--- NOTE | 2024-02-01 20:22 | DI.VRAD_ITS ---
PROCEDURE INFORMATION: Exam: XR Right Knee Exam date and time: 02/01/2024 7:30 PM Age: 53 years old Clinical indication: Injury or trauma; Fall; Blunt trauma; Right; Injury date: 02/01/24; Injury details: Fell on ice, hit knee TECHNIQUE: Imaging protocol: Radiologic exam of the right knee. Views: 3 views. COMPARISON: MR lower joint RT wo 10/27/2018 7:45 AM FINDINGS: Bones/joints: Large joint effusion in the suprapatellar region. This is nonspecific. There is no intra-articular gas evident. No acute fracture. No dislocation. 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 Soft tissues: Moderate anterior soft tissue swelling. No gas or foreign body. IMPRESSION: 1. Large joint effusion. Nonspecific in appearance. 2. Soft tissue swelling. No gas or foreign body. 3. No acute fracture or dislocation. 4. 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 Dictated and Authenticated by: Migue Lee MD. Ordering:MEKHI Aadm MD
--- NOTE | 2024-02-01 23:21 | NUR.NOTE ---
Referral faxed to [facility] Ortho to follow-up in 3 days for Right Knee Effusion, R Knee Immobilizer, WBAT
--- NOTE | 2024-02-02 14:36 | NUR.NOTE ---
Chart opened per to view a nursing note. Nursing Note:
== END 2024-02-01 21:34 | disposition home or self-care (01) ==
PROVIDERS: Emergency Provider Emergency Medicine; PCP Family Medicine Adult Medicine
DX: M25.561 Pain in right knee (principal); M25.461 Effusion, right knee
CPT/HCPCS: 73562; 76882; 99284

== ENCOUNTER 2024-02-03 12:02 | Day surgery (SDC) | payer OTHER, SELFPAY ==
[2024-02-03] VITALS (9 sets, daily range): BP systolic 89–138; BP diastolic 46–85; PULSE 67–78; RESP 14–18; TEMP 36.3–37.7; O2SAT 86–98; BMI 29.8
--- NOTE | 2024-02-03 12:43 | W.PM.DSUDISC ---
Date of service: 02/03/24 Time of Service: 12:43 Discharge Plan Disposition Patient Disposition: Home Condition: Good Discharge Details Reason For Visit: Repair R Quad Attending Provider: Manohar Mcmahon Primary Care Provider: Toni Chase Home Meds and New Rx's Prescriptions: New aspirin 81 mg tablet,delayed release (DR/EC) 81 mg PO BID Qty: 60 0RF acetaminophen 500 mg tablet 1,000 mg PO TID Qty: 90 3RF ibuprofen 600 mg tablet 600 mg PO TID PRN (Reason: pain) Qty: 90 0RF oxycodone 5 mg tablet 5 mg PO Q4H MDD 6 tabs PRN (Reason: pain) Qty: 20 0RF Discontinued acetaminophen 500 mg capsule 1,000 mg PO Q6H PRN ibuprofen [IBU] 800 mg tablet 800 mg PO Q8H PRN Patient Comments: per patient oxycodone 5 mg tablet 5 mg PO DIRECTED Discharge Instructions Additional Instructions: Total Knee Discharge Instructions Activity: You may weight bear as tolerated however you should be wearing the knee immobilizer for ambulation at all times. You need to keep your leg fully extended (straight) at all times but you may relax the knee immobilizer when the leg is straight and supported. You may use the CryoCuff for cold therapy. Dressing: Remove the Martín wrap by 2 days after your surgery. Keep the surgical dressing (underneath the MARTÍN wrap) in place for at least one week. After the first week it may be removed and replaced with light gauze and tape or nothing. The wound and dressing may get wet after 3 days but avoid soaking the dressing or otherwise it will need to be changed. Many people prefer covering the dressing with cling wrap (saran wrap) to minimize it from getting soaked. If it gets wet, just pat dry. If it starts to peel off then it will need to be changed. Medications: - You should take Tylenol and anti-inflammatory ibuprofen as your primary pain control medications. - You have been prescribed a stronger pain medication Oxycodone for breakthrough pain, take as needed as prescribed. - You will be taking Aspirin 81mg twice a day for DVT prevention unless instructed otherwise. - If you have constipation you should take Colace or Miralax (both [id number]). It takes most people 3-4 days to have a bowel movement. Follow-up: 2 weeks If you have any acute concerns or questions, please do not hesitate to contact the office at [phone]. You may contact Dr. Mcmahon with any questions after hours through the hospital at [phone] or on his cell phone at [phone]. Referrals: Manohar Mcmahon MD [ [facility] STAFF PHYSICIAN] - Equipment/Supplies: Partial Weight Bearing Crutches Activity:: Keep leg extended Shower/Bathe:: 72 hours Diet:: As Tolerated Discharge Orders Discharge Orders: Discharge Order (Routine); Ordered 02/03/24 Ordered By: Yair Murillo DS: Diagnosis Discharge Diagnosis (1) Rupture of right quadriceps muscle: Status: Acute
--- NOTE | 2024-02-03 12:52 | ANES.PREOP_ITS ---
General Info Date of Service Date Performed: 02/03/24 Height: 6 ft Weight: 99.79 kg Body Mass Index (BMI): 29.8 Surgical Procedure: Operation Date: 02/03/24 15:25 Proposed Procedure Side Surgeon p Knee Ruptured Quad Tendon Repair Right Manohar Mcmahon MD Meds Allergies and Home Medications Allergies Allergy/AdvReac Type Severity Reaction Status Date / Time No Known Allergies Allergy Verified 02/03/24 12:48 Home Medication Medication Instructions Recorded acetaminophen 500 mg tablet 1,000 mg (2 x 500 mg) PO TID #90 02/03/24 tabs aspirin 81 mg tablet,delayed 81 mg PO BID #60 tabs 02/03/24 release ibuprofen 600 mg tablet 600 mg PO TID PRN pain #90 tabs 02/03/24 oxycodone 5 mg tablet 5 mg PO Q4H PRN pain #20 tabs 02/03/24 Current Visit Medications: Current Medications Generic Name Dose Route Start Last Admin Trade Name Freq PRN Reason Stop Dose Admin Acetaminophen 1,000 mg 02/03/24 06:00 Acetaminophen 500 Mg Tab PO 03/03/24 23:59 PREOP CARLOS A Acetaminophen 650 mg 02/03/24 12:42 Acetaminophen 325 Mg Tab PO 03/04/24 12:41 Q4H PRN PRN Celecoxib 400 mg 02/03/24 06:00 Celecoxib 200 Mg Cap PO 03/03/24 23:59 PREOP CARLOS A Ringer's Solution 1,000 mls @ 80 mls/hr 02/03/24 06:00 IV 03/03/24 23:59 INFUSION CARLOS A Cefazolin Sodium/Dextrose 2 gm in 50 mls @ 100 mls/hr 02/03/24 06:00 Ancef Duplex IVPB 03/03/24 23:59 PREOP CARLOS A Tranexamic Acid/Sodium Chloride 1,000 mg in 100 mls @ 600 mls/hr 02/03/24 06:00 IVPB 02/03/24 23:59 PREOP [facility] IV Miscellaneous Supplies 1 each 02/03/24 06:00 Iv Access IV 03/03/24 23:59 DIRECTED CARLOS A Oxycodone/Acetaminophen 1 tab 02/03/24 12:42 Oxycodone 5 Mg/Acetaminophen 325 Mg Tab PO 03/04/24 12:41 Q4H PRN PRN Pain Sodium Chloride 0 ml 02/03/24 06:00 Normal Saline Flush 10 Ml Syr IV 03/03/24 23:59 PRN PRN Sodium Chloride 0 ml 02/03/24 06:00 Normal Saline 10 Ml Vial IJ 03/03/24 23:59 DIRECTED PRN Sterile Water 0 ml 02/03/24 06:00 Water,Injection,Sterile 10 Ml Vial IJ 03/03/24 23:59 DIRECTED PRN PFSH Active Problems Active Problems: Problem Status Onset Code Rupture of right quadriceps muscle 02/02/24 S76.111A Effusion of right knee M25.461 Medical History Medical History Carpal tunnel syndrome, bilateral Degenerative disc disease, lumbar Fracture tibia/fibula sports injury, high school Tobacco Smoking/Tobacco Use Status: Current-Occasional Tobacco Type: cigars Alcohol Alcohol Intake: current Alcohol intake frequency: a few times a week Alcohol type: hard liquor Substance Use Substance use: Never Substance use type: does not use Vital Signs and Lab Results Vital Signs Most Recent Vital Signs in EMR: Most Recent Vital Signs Temp Pulse Resp BP Pulse Ox 36.3 C L 78 16 138/85 98 02/03/24 12:39 02/03/24 12:39 02/03/24 12:39 02/03/24 12:39 02/03/24 12:39 Lab Results Blood Type / Crossmatch: No Data to Display Complete Blood Count: No Data to Display Complete Metabolic Panel: No Data to Display Liver Function Panel: No Data to Display Coagulation Panel: No Data to Display Cardiac Panel: No Data to Display Arterial Blood Gas: No Data to Display Venous Blood Gas: No Data to Display Pancreas Panel: No Data to Display Thyroid Panel: No Data to Display Infectious Disease: No Data to Display Blood Cultures: No Data to Display Toxicology Panel: No Data to Display Imaging and Studies Imaging and Studies Study information below may be from another EMR and interpreted by another provider. Please see original notes in EMR for more complete details. EKG Summary: 12/01: sinus, LAD. Anesthesia Assessment and Plan Anesthesia History Personal History: No History of Anesthesia Complications Family History: No Family History of Anesthesia Complications Exercise Tolerance Exercise Tolerance: Metabolic Equivalents>4 Cardiac & Pulmonary Exam Cardiac Exam: Normal S1/S2 Heart Sounds Pulmonary Exam: Clear Bilateral Breath Sounds Implantable Cardiac Device Does patient have a Pacemaker or an ICD?: No Airway Exam Known Difficult Airway: No Mallampati Class: 2 Mouth Opening: Normal (> 3cm) Thyromental Distance: Greater than 3 cm Neck Range of Motion: Full ROM Neck Circumference: Normal Teeth Condition: Normal Dentition ASA Classification ASA Score: ASA 2 Emergency Case?: No NPO Status NPO Status: NPO Clears >2 hours, Solids >8 hours Anesthesia Plan Resuscitation Status: Full Code Anesthesia Technique: General Anesthesia Airway Planned: Endotracheal Tube Monitors Used: Standard Monitors Preoperative Comments:: 53 yo male for quad tendon repair. Sig PMHx: occ cigars, occ EtOh. denies major. Discussed risks, benefits, and alternatives of spinal vs general. Would like to do GA.
[2024-02-03] MEDS: Acetaminophen 500 MG TAB 1000 MG PO (13:09)
[2024-02-03] MEDS: Celecoxib 200 MG CAP 400 MG PO (13:09)
[2024-02-03] MEDS: Lactated Ringers 1,000 ML 80 ML IV (13:10)
--- NOTE | 2024-02-03 13:59 | HPE_ITS ---
Assessment and Plan Assessment and plan (1) Rupture of right quadriceps muscle: Status: Acute Assessment and plan: Kavon is a 53-year-old active male who unfortunate suffered a quadriceps rupture about the right knee. This is a surgical case and therefore I recommend we proceed urgently to fixation. I discussed the technical features of the case with him to repair the quadriceps mechanism. We would fully evaluate the knee for any retinacular tears or other associated injuries while in there. A brief evaluation of the knee joint service will also be performed. I reviewed the risk of the procedure to include bleeding, infection, pain, stiffness, weakness, lag, rerupture, hardware failure, blood clot, damage to nerves and vessels, damage to muscle and tendons. Despite these risk, he elects to proceed. History of Present Illness History of Present Illness Chief Complaint: Right knee pain and swelling Narrative: Kavon is an active 53-year-old who slipped on his icy porch on Friday, suffering a hyperflexion injury to the right knee. He had immediate pain and swelling. Had difficulty with ambulation. He tried to treat it at home but was unable to ambulate with notable swelling was presented to the emergency department. In the ED he was noted have a large effusion about the right knee with lack of straight leg raise. I called him on Friday after getting the referral note from the emergency department and discussed the symptoms which are concerning for quadriceps rupture. I recommend proceeding to the operating room soon as possible for fixation. He denies any other trauma. No loss of consciousness. 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 He denies any active chest pain or shortness of breath. Review of Systems All systems reviewed & are unremarkable except as noted in HPI and below PFSH All Active Problems Rupture of right quadriceps muscle (Acute 02/02/24) S/P Repair: 02/03/2024 Effusion of right knee (Acute) Medical History Fracture tibia/fibula sports injury, high school Degenerative disc disease, lumbar Carpal tunnel syndrome, bilateral Social History Smoking/Tobacco Use Status: Current-Occasional Tobacco Type: cigars Smoking risk assessment performed?: Yes Alcohol Intake: current Alcohol Intake frequency: a few times a week Alcohol type: hard liquor Drug use: Never Substance use type: does not use Household members: spouse Housing: house 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, [employer] What type of physical activity do you participate in: regular exercise Frequency: daily Do you feel safe at home: Yes Do you feel safe in your relationship?: Yes Meds Allergies and Home Medications Allergies Allergy/AdvReac Type Severity Reaction Status Date / Time No Known Allergies Allergy Verified 02/03/24 12:48 Home Medications Medication Instructions Recorded Confirmed Type acetaminophen 500 mg tablet 1,000 mg (2 x 500 mg) PO TID #90 02/03/24 Rx tabs aspirin 81 mg tablet,delayed 81 mg PO BID #60 tabs 02/03/24 Rx release ibuprofen 600 mg tablet 600 mg PO TID PRN pain #90 tabs 02/03/24 Rx oxycodone 5 mg tablet 5 mg PO Q4H PRN pain #20 tabs 02/03/24 Rx Exam Const General: cooperative, healthy appearing, comfortable and no acute distress Resp Auscultation: clear to auscultation bilaterally Cardio Rate: regular rate Rhythm: regular rhythm Extrem Other: Evaluation of the right knee shows a large, tense effusion about the right knee. It is difficult to palpate the patella due to the defect. However, there is a clear space superior to the patella. Is unable to demonstrate any active knee extension. He has no active straight leg raise even against gravity. Sensation intact light touch over the deep and superficial peroneal nerve and tibial nerve. The knee appears stable to varus and valgus stress, however, limited by pain and swelling. Results Imaging Imaging Studies: X-ray of the right knee from the emergency department was reviewed. This shows no signs of fracture. There is a large effusion which violates the quadriceps tendon and goes all the way to the skin surface. There is a large enthesophyte seen on the superior pole of the patella. There is also some irregularity and ossicle about the patellar ligament at its insertion to the tibial tubercle. Last Vital Signs Temp 36.3 C L 02/03/24 12:39 Pulse 78 02/03/24 12:39 Resp 16 02/03/24 12:39 BP 138/85 02/03/24 12:39 Pulse Ox 98 02/03/24 12:39
[2024-02-03] MEDS: ceFAZolin 2 GM/50 ML BAG IVPB (14:04)
[2024-02-03] MEDS: TRANEXAMIC ACID/SOD. CHL. 1,000 MG/100 ML BAG 600 MG IVPB (14:09)
--- NOTE | 2024-02-03 16:05 | W.PM.OP ---
Date of service: 02/03/24 Time of Service: 14:20 Operative Note Operative Note DATE OF PROCEDURE: 02/03/24 PRE-OP DIAGNOSIS: Right Quadriceps Tendon Tear POST-OP DIAGNOSIS: same PROCEDURE: Repair of qaudriceps tendon - right knee SURGEON: Manohar Mcmahon SOLE CONFORMING MACHINE OPERATOR: Yair Murillo ANESTHESIA TYPE: General LMA/ETT Refer to Anesthesia Record ESTIMATED BLOOD LOSS: 50 PATHOLOGY: none sent TOURNIQUET TIME: 0 COMPLICATIONS: None Patient was transported to: PACU Patient's condition: stable Indications: Kavon is a 53-year-old active male who had a slip on an icy porch resulting in a hyperflexion injury to the right knee with an obvious quadriceps tear. I recommended surgical fixation. I discussed the risk of the procedure to include bleeding, infection, pain, stiffness, weakness, continual lag, hardware failure, damage to nerves and vessels, blood clot, need for repeat procedures. Despite these risk, he elects to proceed. Findings: There was a complete rupture of the quadriceps from the superior pole patella. This was not a clean tear and that there was remnant tendon over a portion of the superior pole the patella including the vastus medialis oblique is origin. The tear extended into the vastus medialis muscle belly as well as through the vastus lateralis tendon and muscle. A knotless suture anchor fixation was performed with excellent reduction and no gapping up to 90 degrees. Procedure Description: Kavon is greater in the preoperative holding area. His identity was confirmed the correct site was identified and marked. History and physical was performed. The consent was reviewed and signed. He was then taken back to the operating room placed in the supine position. General anesthetic was administered. The right leg was placed onto a bone foam ramp with a bump underneath the right hip. Prophylactic antibiotics in the form of cefazolin given. 1 g of tranexamic acid was administered. The right leg was then prepped ChloraPrep and draped in a standard fashion utilizing a U-Drape and stockinette. A timeout was performed for safe surgery. The surgical site was once again prepped with ChloraPrep and this was reinforced with Ioban. An approximately 10 cm incision was made overlying the knee from the inferior pole the patella extending proximally. Once through the skin there is an obvious defect palpable and once through the deeper fascia there is a large clot which was evacuated. This abundant clot was evacuated from within the joint as well as underneath the quadriceps musculature. Once this was removed in whole the wound was thoroughly irrigated. There was a small active bleeder from the vastus medialis which was cauterized. The quadriceps tear was primarily off of the superior pole of the patella. There was some bony irregularity which was smoothed with a rongeur. There is also some residual tendon attached over the deep portion of the patella which was removed. A large portion of the vastus medialis oblique is insertion was attached to the superior medial aspect of the patella and this was left in place. The remainder of the superior pole the patella was debrided and roughened with a curette. The knee was then thoroughly irrigated with Surgiphor Betadine solution. It was allowed to sit the knee for 3 minutes before being irrigated with saline. The quadriceps was more fully evaluated. There was significant fraying of this and but the tendon still appeared healthy. The tear extended into the vastus lateralis tendon and muscle as well. An Allis clamp was used to be able to pull the quadriceps which was able to reach the superior pole patella. I then passed a #2 fiber tape suture through the lateral side of the quadriceps tendon with locking Krak?w sutures. 5 throws were placed and the suture was taken down the medial aspect of the quadriceps tendon in a similar fashion. An additional #2 fiber tape suture was also utilized for the central and leading portion of the quadriceps tendon with 2 Krak?w sutures in each limb. Location for the Arthrex swivel lock suture anchors was marked over the superior pole of the patella. I then prepared the sites utilizing a 3.5 mm drill. A tap was then also utilized to prepare the suture anchor insertion. 2 limbs of the sutures from the lateral side were then inserted and through the end of the swivel lock anchor. They were tensioned appropriately as a swivel lock was inserted into the prepared pathway into the patella. The bone was quite dense and a mallet was utilized to seat SwiveLock anchor with appropriate tension on the suture anchors. Once the swivel lock was at its appropriate location it was inserted fully with excellent squeak on insertion until the screw was buried. This was repeated then for the medial side in a similar fashion. This then had excellent reapproximation of the quadriceps to the superior pole the patella. I utilized the extra suture in the lateral anchor to reapproximate and gather some of the vastus lateralis tendon. The knee was then brought through range of motion from 0 to 90 degrees and there is no gapping at the tendon?bone interface. The knee was then once again irrigated. The corner of the vastus medialis was sutured back to the medial edge of the quadriceps utilizing a #2 FiberWire. The remainder of the split into the vastus medialis and the vastus lateralis was closed with a #1 Vicryl. At this point there is no gapping and no visibility into the knee joint itself. Once again the repair was tested and was stable to 90 degrees. The knee was then injected with a cocktail mixture of ropivacaine, epinephrine, clonidine, and ketorolac. The deep tissues were closed with a 0 and 2-0 Monocryl. The skin was closed with a running 3-0 Monocryl reinforced with skin glue. A Mepilex silver dressing was applied followed by toe to thigh Martín wrap. He was placed into a knee immobilizer with leg extended along with a Cryo/Cuff. At the end the case all counts are correct. He tolerated the procedure well. He was transferred back to the PACU before day surgery. Will be weightbearing as tolerated with the knee in extension utilizing crutches.
--- NOTE | 2024-02-03 16:57 | W.ANESPOSTOP ---
Postoperative Evaluation Date, Time and Location Date Performed: 02/03/24 Time Performed: 16:50 Patient Location: PACU Vital Signs Most Recent Imported Vital Signs: Most Recent Vital Signs Temp Pulse Resp BP Pulse Ox 37.7 C H 69 18 114/81 94 02/03/24 16:49 02/03/24 16:49 02/03/24 16:49 02/03/24 16:49 02/03/24 16:49 Pain Score Most Recent Pain Score: Most Recent Pain Score Pain Level 3 02/03/24 16:49 Assessment Mental Status: Awake (Alert & Oriented to Patient Baseline) Airway and Respiratory Function: Patent airway with normal (patient baseline) respiratory exam Cardiovascular Function: Hemodynamically Stable Hydration Status: Adequately Hydrated Nausea & Vomiting: No Nausea or Vomiting Pain: Pain is tolerable per patient Peripheral Nerve Block: Patient did not receive a nerve block
== END 2024-02-03 18:01 | disposition home or self-care (01) ==
PROVIDERS: PCP Family Medicine Adult Medicine; Visit Provider Student in an Organized Health Care Education/Training Program
PROC: (CPT 27385; principal; 2024-02-03 15:15)
DX: S76.111A Strain of right quadriceps muscle, fascia and tendon, initial encounter (principal); F17.290 Nicotine dependence, other tobacco product, uncomplicated; M51.36 Other intervertebral disc degeneration, lumbar region; W00.0XXA Fall on same level due to ice and snow, initial encounter
CPT/HCPCS: 27385; J0690; J1100; J2001; J2401; J2405; J2704; J3475